=== PATIENT | female | born 1950 ===

== ENCOUNTER 2019-04-26 05:03 | Day surgery (SDC) | payer OTHER ==
[~2019-04-26 05:03] MED LIST: ALTOPREV40 MG PO; COZAAR100 MG PO; HORIZANT300 MG PO; PLAVIX75 MG PO; SINGULAIR10 MG PO; SYNTHROID88 MCG PO
[2019-04-26] MEDS ORDERED: MACROBID 100 M100 MG PO (11:20)
== END 2019-04-26 16:20 | disposition home or self-care (01) ==
LOC: CIR.AMB 05:03
DX: N81.5 Vaginal enterocele (principal); N81.6 Rectocele